=== PATIENT | male | born 1985 | race Caucasian/White ===

== ENCOUNTER 2016-05-05 19:18 | Emergency (ER) | payer BC ==
--- NOTE | 2016-05-05 19:49 | Emergency Department Record ---
History of Present Illness - General Chief Complaint: Fever Stated Complaint: FEVER AND ON CHEMO Time Seen by Provider: 05/05/16 19:45 Source: Patient Mode of Arrival: Ambulatory Limitations: No limitations - History of Present Illness Initial Comments: 31 yo male presents to ED with a CC of elevated temperature tonight around 18: 00 tonight. Patient reports that his temperature read just over 101 degrees, came to ED for evaluation as he is currently being treated for colon cancer for the past 6 months with once-daily chemo. Patient denies abdominal pain, cough, or urinary symptoms. Patient reports very mild headache, but otherwise feels at his baseline. MD Complaint: Fever Onset/Timin -: Hour(s) Maximum Temperature: 101 F Temperature Source: Tympanic Context: On chemotherapy, Sick contacts Associated Symptoms: Denies other symptoms Treatments Prior to Arrival: None - Related Data Home Medications Medication Instructions Recorded Confirmed Last Taken Imatinib Mesylate [Imatinib 400 mg PO DAILY 12/27/15 05/05/16 05/05/16 Mesylate] Granisetron HCl 1 mg PO BID 05/05/16 05/05/16 05/05/16 Scopolamine [Transderm-Scop] 1 patch TD Q72H 05/05/16 05/05/16 05/05/16 Allergies Allergy/AdvReac Type Severity Reaction Status Date / Time prochlorperazine Allergy Intermediate SWELLING Verified 05/05/16 19:27 [From Compazine] OF THE LIPS prochlorperazine edisylate Allergy Intermediate SWELLING Verified 05/05/16 19:27 [From Compazine] OF THE LIPS prochlorperazine maleate Allergy Intermediate SWELLING Verified 05/05/16 19:27 [From Compazine] OF THE LIPS Travel Screening - Travel/Exposure Within Last 30 Days Have you traveled within the last 30 days?: No - Travel/Exposure Within Last Year Have you traveled outside the [place] in the last year?: No - Additonal Travel Details Have you been exposed to anyone with a communicable illness?: No - Travel Symptoms Symptom Screening: None Review of Systems Constitutional: Reports: Fever. Denies: Chills, Malaise, Night sweats Eyes: Denies: Eye discharge, Eye pain ENT: Denies: Congestion, Ear pain Respiratory: Denies: Cough, Dyspnea Cardiovascular: Denies: Chest pain, Dyspnea on exertion Endocrine: Denies: Fatigue, Heat or cold intolerance Gastrointestinal: Denies: Abdominal pain, Nausea, Vomiting Genitourinary: Denies: Frequency, Hematuria, Incontinence, Retention Musculoskeletal: Denies: Arthralgia, Back pain, Gout, Joint swelling Skin: Denies: Bruising, Change in color Neurological: Denies: Abnormal gait, Confusion, Headache, Seizure Psychiatric: Denies: Anxiety Hematological/Lymphatic: Denies: Anemia, Blood Clots Past Medical History - SOCIAL HISTORY Smoking Status: Former smoker Alcohol Use: None Drug Use: None - RESPIRATORY Hx Respiratory Disorders: Yes Hx Asthma: Yes (excercise induced as a child) Hx Bronchitis: Yes (last 2008) Hx Pneumonia: Yes (2009 hospitalized) Hx Sleep Apnea: Yes Hx of CPAP: No - CARDIOVASCULAR Hx Cardio Disorders: Yes Hx Hypertension: Yes ("white coat syndrome") - NEURO Hx Neuro Disorders: Yes Hx of Migraines: Yes (occasionally) Hx Neuropathy: Yes (LLE r/t sciatica) - GI Hx GI Disorders: Yes Hx Nausea/Vomiting: Yes Hx Rectal Bleeding: Yes Hx Ulcer: Yes (PUD) Hx Wt Loss/Wt Gain: Yes (down 10-15lbs in 1 month) - Hx Genitourinary Disorders: No - ENDOCRINE Hx Endocrine Disorders: No - MUSCULOSKELETAL Hx Musculoskeletal Disorders: Yes Hx Arthritis: Yes Hx Back Injury: Yes - PSYCH Hx Psych Problems: Yes Hx Depression: Yes (situational) - HEMATOLOGY/ONCOLOGY Hx Hematology/Oncology Disorders: Yes Hx Cancer: Yes (GIST) Hx Chemotherapy: Yes (oral daily for 2 months) Family Medical History Any Significant Family History?: No Hx Cancer: Grandparents Hx Heart Disease: Grandparents Hx HTN: Grandparents Physical Exam - General General Appearance: Alert, Oriented x3, Cooperative, No acute distress Limitations: No limitations - Head Head exam: Atraumatic, Normocephalic, Normal inspection Head exam detail: negative: Abrasion, Contusion, Jimenez's sign, General tenderness, Hematoma, Laceration - Eye Eye exam: Normal appearance. negative: Conjunctival injection, Periorbital swelling, Periorbital tenderness, Scleral icterus - ENT ENT exam: Normal orophraynx, TM's normal bilaterally Ear exam: negative: Auricular hematoma, Auricular trauma Nasal Exam: negative: Active bleeding, Discharge, Dried blood, Foreign body Mouth exam: negative: Drooling, Laceration, Muffled voice, Tongue elevation Throat exam: Normal inspection. negative: Tonsillar erythema, Tonsillomegaly, R peritonsillar mass, L peritonsillar mass - Neck Neck exam: Normal inspection. negative: Meningismus, Tenderness - Respiratory Respiratory exam: Normal lung sounds bilaterally. negative: Rales, Respiratory distress, Rhonchi, Stridor - Cardiovascular Cardiovascular Exam: Regular rate, Normal rhythm, Normal heart sounds - GI/Abdominal GI/Abdominal exam: Soft. negative: Rebound, Rigid, Tenderness - Rectal Rectal exam: Deferred - exam: Deferred - Extremities Extremities exam: Normal inspection. negative: Calf tenderness, Pedal edema, Tenderness - Back Back exam: Denies: CVA tenderness (R), CVA tenderness (L) - Neurological Neurological exam: Alert, Normal gait, Oriented X3 - Psychiatric Psychiatric exam: Normal affect, Normal mood - Skin Skin exam: Normal color. negative: Abrasion Type of lesion: negative: abrasion Course Vital Signs 05/05/16 19:30 Temperature 98.7 F Pulse Rate 95 H Respiratory 18 Rate Blood Pressure 144/97 Pulse Ox 97 - Reevaluation(s) Reevaluation #1: 05/05/16 20:20 Labs reviewed and are grossly unremarkable for an acute process. WBC/ANC are normal. UA and influenza are both negative for infection. Patient is in x-ray currently. Reevaluation #2: 05/05/16 20:40 CXR: Negative. Reevaluation #3: 05/05/16 20:42 Case was discussed with Dr. Downey (on-call for Dr. Gagnon, patient's Oncologist), discussed the patient's ED evaluation and symptoms, recommends no further action at this time with instructions to monitor his temperature at home and to call Dr. Gagnon tomorrow. Patient appears stable for discharge at this time. Medical Decision Making - Lab Data Result diagrams: 05/05/16 19:50 05/05/16 19:50 Disposition Disposition: Discharge Clinical Impression: History of fever Malignant neoplasm of colon Qualifiers: Colon location: ascending Qualified Code(s): C18.2 - Malignant neoplasm of ascending colon Disposition: Home, Self-Care Condition: (2) Stable Instructions: Fever in Adults (ED) Additional Instructions: Return to ED if your symptoms worsen or if you have any concerns. Follow-up with Dr. Gagnon in 1-3 days as directed. Forms: Patient Portal Access Time of Disposition: 20:45
[2016-05-05 19:57] LABS: BASO % 0.3 % (0-6); EOS % 2.4 % (0-6); GRAN % 65.7 % (47-80); HEMOGLOBIN 13.9 gm/dl (14.0-18.0); LYMPH % 23.8 % (16-45); MEAN CELL VOLUME 89.5 fl (81-97); MEAN CORPUSCULAR HGB CONC 34.8 g/dl (32-36); MEAN PLATELET VOLUME 9.1 fl (7.4-10.4); MONO % 7.8 % (0-9); PLATELET COUNT 283 K/uL (130-400); RED BLOOD COUNT 4.47 M/uL (4.40-5.70); RED CELL DISTRIBUTION WIDTH 13.9 % (11.5-14.5); WHITE BLOOD COUNT W/O DIFF 10.1 K/uL (4.2-12.2)
[2016-05-05 20:00] LABS: URINE APPEARANCE CLEAR; URINE BILIRUBIN NEGATIVE (NEGATIVE); URINE BLOOD TRACE-I (NEGATIVE); URINE COLOR YELLOW; URINE GLUCOSE (UA) NEGATIVE (NEGATIVE); URINE KETONE NEGATIVE (NEGATIVE); URINE LEUKOCYTE ESTERASE NEGATIVE (NEGATIVE); URINE NITRITE NEGATIVE (NEGATIVE); URINE PROTEIN NEGATIVE (NEGATIVE); URINE UROBILINOGEN 0.2 E.U./dL (0.20 - 1.00)
[2016-05-05 20:10] LABS: URINE MUCUS MODERATE; URINE RBC 0 - 2 (NONE SEEN); URINE WBC 0 - 2 (0-2/hpf)
[2016-05-05 20:12] LABS: ALB/GLOB RATIO 1.8 (1.1-1.8); ALBUMIN 4.4 gm/dL (3.5-5.0); ALKALINE PHOSPHATASE 59 U/L (38-126); ALT/SGPT 32 U/L (21-72); ANION GAP 11.5 (7-16); AST/SGOT 21 U/L (17-59); BILIRUBIN,TOTAL 0.55 mg/dL (0.2-1.3); BLOOD UREA NITROGEN 16 mg/dL (9-20); CARBON DIOXIDE 27.5 mmol/L (22-30); CREATININE 0.9 mg/dL (0.66-1.25); EST GLOMERULAR FILTRATION RATE > 60 ml/min; GLUCOSE,RANDOM 112 mg/dL (70-110); INFLUENZA A NEGATIVE (NEGATIVE); INFLUENZA B NEGATIVE (NEGATIVE); TOTAL PROTEIN 6.9 gm/dL (6.3-8.2)
--- NOTE | 2016-05-11 08:57 | RADIOLOGY REPORT ---
EXAM: CHEST, TWO VIEWS HISTORY: DIFFICULTY BREATHING. TECHNIQUE: Frontal and lateral views of the chest were performed. FINDINGS: The heart size is normal. The lung lewis are clear. The osseous structures are normal. IMPRESSION: NEGATIVE CHEST EXAMINATION. JOB NUMBER: [id number] MTDD
== END 2016-05-05 20:54 | disposition home or self-care (01) ==
LOC: ER 19:18
DX: R50.9 Fever, unspecified (principal); C18.2 Malignant neoplasm of ascending colon; R51 Headache
CPT/HCPCS: 71020; 80053; 81001; 85025; 87400; 99283; 99284

== ENCOUNTER 2016-05-24 10:22 | Day surgery (SDC) | payer BC ==
[2016-05-24] MEDS ORDERED: LIDOCAINE 2% MDV (20MG/ML) 20ML VIAL IV ONE (14:00)
[2016-05-24] MEDS ORDERED: MIDAZOLAM HCL 2MG/2ML VIAL IV ONE (14:00)
[2016-05-24] MEDS ORDERED: PROPOFOL 10 MG/ML VIAL IV ONE (14:00)
--- NOTE | 2016-05-28 13:38 | Operative Note ---
DATE OF SURGERY: 05/24/2016. REFERRING PHYSICIAN: Cristhian Ely M.D., Ramona Gagnon D.O., and Shemar Maldonado M.D. PROCEDURE: Colonoscopy to the neoterminal ileum. 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 He had a small bowel obstruction which resulted in a bowel resection and subsequent chemotherapy. He also experiences intermittent episodes of bright red rectal bleeding. Colonoscopy is performed at this time for further evaluation. ANESTHESIA: Intravenous sedation was administered by the Department of Anesthesiology and included Diprivan titrated to effect. PROCEDURE: Following informed consent from this alert individual, including a discussion of the risks and benefits of the procedure and an opportunity for the patient to ask questions, the patient was in the left lateral decubitus position. A digital rectal examination was performed. No abnormalities were noted. Following this, the Olympus PCF-180 video colonoscope was inserted into the rectum without resistance. The rectal mucosa had a normal appearance with normal folds and distensibility. The colonoscope was easily advanced up through the bowel to the level of a small bowel anastomosis in the right colon. The colon preparation was good. Throughout the colon the mucosa appeared normal, the folds were normal and the bowel was fairly distensible. The anastomosis was widely patent and healthy in appearance. The neoterminal ileum was cannulated for approximately 15 cm and was found to be completely unremarkable. From this point the colonoscope was then withdrawn. The colon upon withdrawal was free from mucosal changes throughout. Retroflexion in the rectum revealed hypertrophied anal papilla with mild pectenitis only. The endoscope was straightened and removed. The patient tolerated the procedure well and was returned to the recovery area in stable condition. IMPRESSION: 1. Previous right colon resection with healthy-appearing anastomosis. 2. Normal neoterminal ileum. 3. Hypertrophied anal papilla with mild pectenitis. RECOMMENDATIONS: The patient can utilize hemorrhoidal cream as needed for any rectal bleeding or irritation. Follow up will be with Oncology and Primary Care. JAYCOB MARY D.O. Date Time JOB NUMBER: [id number] cc: Renee Rico D.O. Scott Schuetze, M.D. MTDD
== END 2016-05-24 12:55 | disposition home or self-care (01) ==
LOC: HOP 10:22
PROVIDERS: ATTEND Internal Medicine Gastroenterology
DX: K62.89 Other specified diseases of anus and rectum (principal); C49.A3 Gastrointestinal stromal tumor of small intestine; R58 Hemorrhage, not elsewhere classified